=== PATIENT | female | born 1995 | race Caucasian/White ===

== ENCOUNTER 2018-08-25 03:20 | Outpatient (CLI) | payer OTHER, SELFPAY ==
[2018-08-25 03:56] VITALS: BMI 25.7
--- NOTE | 2018-08-25 06:05 | US_ITS ---
STUDY: SECOND AND THIRD TRIMESTER OBSTETRICAL ULTRASOUND - LIMITED REASON FOR EXAM: Female, 23 years old. Contractions with nausea. Check growth, position, and fluid levels. LMP: November 18, 2017. PRIOR ULTRASOUND: None. TECHNIQUE: Transabdominal TECHNICAL QUALITY: Adequate. FINDINGS: There is a single intrauterine fetus. The fetus is in a cephalic presentation. There is demonstrated cardiac activity with a heart rate of 128 bpm. There is a normal amniotic fluid volume. The largest amniotic fluid pocket measures 5.5 cm. The amniotic fluid index (ZUHAIR) is 15.9 cm. The placenta is posterior in location, but its position relative to the internal cervical os was not evaluated. There are Grade 3 placental changes. The cervix measures 2.9 cm in length and is closed. BIOMETRY: BPD: 9.5 cm: 38 weeks, 6 days HC: 34.24 cm: 39 weeks, 4 days AC: 35.74 cm: 39 weeks, 5 days FL: 7.72 cm: 39 weeks, 4 days Age by LMP: 39 weeks, 3 days. NAKITA by LMP: August 29, 2018. age by current US: 40 weeks, 0 days. NAKITA by current US: August 25, 2018. Estimated weight: 3797 grams, +/- 554 grams, 65 percentile. The umbilical cord is noted adjacent to the neck, but it is difficult to discern if it surrounds the neck. US/OB Limited With Biometrics IMPRESSION: 1. Single living intrauterine fetus in cephalic presentation estimated gestational age of 39 weeks, 3 days. Estimated date of delivery by today's exam as August 29, 2018. 2. Grade 3 posterior placenta. Placenta position relative to the internal cervical os was not evaluated. 3. Cervical length is 2.9 cm, and the cervix is closed. 4. Normal amniotic fluid volume with an index of 15.9 cm. 5. Estimated weight is 3797 g. 6. The umbilical cord is noted adjacent to the neck, but it is difficult to discern if it surrounds the neck. Electronically Signed: Juan Fink MD at 9:35 EST , Service support ,
--- NOTE | 2018-08-25 06:30 | NURSING ---
US visitor services technician called in to inform this nurse that she will be in to do US at approx 0730 and to have pt drink 32 oz prior to procedure.
[2018-08-25] MEDS: Acetaminophen 500 MG Tablet 650 MG PO (08:40)
--- NOTE | 2018-08-25 11:52 | OB.TRI.NOTE ---
- Problem List (1) False labor at or after 37 completed weeks of gestation, antepartum Status: Acute History of Present Illness Date of Service: 08/25/18 Was patient seen by the physician?: Yes Reason For Visit: R/O LABOR Date of Service: 08/25/18 Final NAKITA: 08/25/18 Final NAKITA Source: US <20 weeks Gestational age: 40 Weeks and 0 Days History of Present Illness: Patient is a 23 y/o @ 40 weeks by early 1st trimester ultrasound who presented to triage reporting regular ctx q 5 minutes apart and lasting 30-60 seconds. Patient reports +FM and denies any vaginal bleeding or discharge. Patient reports she was seen in OB office earlier in day where she had cervical exam and membrane sweep done. Allergies No Known Allergies Allergy (Verified 08/25/18 03:57) - Pertinent Past Medical History Pertinent Past Medical History: SEE [facility] - [facility] [place] Record Review of Systems Constitutional: Denies: Chills, Fever, Weight Change HEENT: Denies: Head Aches, Sinus Congestion, Sinus Drainage Cardiovascular: Denies: Chest Pain, Palpitations Respiratory: Denies: Cough, Shortness of breath at rest, Sputum production Gastrointestinal: Reports: - - Reports discomfort with ctx. Denies: Abdominal Pain, Nausea, Vomiting Genitourinary: Denies: Dysuria Gynecological: Denies: Vaginal bleeding, Vaginal discharge, Vaginal itching Musculoskeletal: Denies: Joint Pain, Joint Tenderness Skin: Denies: Rash, Wounds Neurological: Denies: Numbness, Tingling, Focal weakness Psychiatric: Denies: Anxiety, Depression, Homicidal Ideations, Suicidal Ideations Hematologic/ Lymphatic: Denies: Easy Bruising, Easy Bleeding Physical Exam Vitals: VSS and Afebrile Limited Growth 3rd trimester ultrasound showed EFW = 8#6oz, ZUHAIR = 16 General: Alert, Oriented x3, No apparent distress HEENT: Atraumatic, Normocephalic. Negative for: Thyromegaly, Lymphadenopathy Cardiovascular: Regular rate, Regular Rhythm Lungs: Normal air movement Abdomen: Non Tender, Gravid Neurological: Deep Tendon Reflexes 2+/4 and Symmetrical, Neuro grossly intact ANDROID FRAMEWORK DEVELOPER: Normal external genitalia. Negative for: Vulvar lesions Estimated gestational size: Appropriate for gestational size Presentation: Cephalic Cervix Dilation (cm): 1 - Per inside sales recruiter Station: -3 Effacement (%): 50 NST - FHR Rate Baby A Baseline: 120 Variability:: Moderate Accelerations:: 15 x 15 Decelerations:: None NST Reactive:: Yes, Appropriate for gestational age FHR Category:: Category I Uterine Activity:: Irregular q 5-10 minutes, most not palpable Impression/Plan 23 y/o @ 40 weeks, False Labor at Term, Category I FHT P: 1) Reassuring testing noted - discharge patient to home at this time 2) Labor precautions and FKC teaching done 3) F/u visit with [facility] provider on Monday in Office 4) Anticipate scheduled IOL @ 41 weeks if spontaneous labor does not occur 5) Dr. Sorensen and Pavithra back-up OB physicians notified of plan of care. Yolie ZARAGOZA
--- NOTE | 2018-08-25 11:57 | OB.TRI.HP_ITS ---
- Problem List (1) False labor at or after 37 completed weeks of gestation, antepartum Status: Acute History of Present Illness Date of Service: 08/25/18 Was patient seen by the physician?: Yes Reason For Visit: R/O LABOR Date of Service: 08/25/18 Final NAKITA: 08/25/18 Final NAKITA Source: US <20 weeks Gestational age: 40 Weeks and 0 Days History of Present Illness: Patient is a 23 y/o @ 40 weeks by early 1st trimester ultrasound who presented to triage reporting regular ctx q 5 minutes apart and lasting 30-60 seconds. Patient reports +FM and denies any vaginal bleeding or discharge. Patient reports she was seen in OB office earlier in day where she had cervical exam and membrane sweep done. Allergies No Known Allergies Allergy (Verified 08/25/18 03:57) - Pertinent Past Medical History Pertinent Past Medical History: SEE [facility] - [facility] [place] Record Review of Systems Constitutional: Denies: Chills, Fever, Weight Change HEENT: Denies: Head Aches, Sinus Congestion, Sinus Drainage Cardiovascular: Denies: Chest Pain, Palpitations Respiratory: Denies: Cough, Shortness of breath at rest, Sputum production Gastrointestinal: Reports: - - Reports discomfort with ctx. Denies: Abdominal Pain, Nausea, Vomiting Genitourinary: Denies: Dysuria Gynecological: Denies: Vaginal bleeding, Vaginal discharge, Vaginal itching Musculoskeletal: Denies: Joint Pain, Joint Tenderness Skin: Denies: Rash, Wounds Neurological: Denies: Numbness, Tingling, Focal weakness Psychiatric: Denies: Anxiety, Depression, Homicidal Ideations, Suicidal I deations Hematologic/ Lymphatic: Denies: Easy Bruising, Easy Bleeding Physical Exam Vitals: VSS and Afebrile Limited Growth 3rd trimester ultrasound showed EFW = 8#6oz, ZUHAIR = 16 General: Alert, Oriented x3, No apparent distress HEENT: Atraumatic, Normocephalic. Negative for: Thyromegaly, Lymphadenopathy Cardiovascular: Regular rate, Regular Rhythm Lungs: Normal air movement Abdomen: Non Tender, Gravid Neurological: Deep Tendon Reflexes 2+/4 and Symmetrical, Neuro grossly intact NETWORK PROFESSIONAL: Normal external genitalia. Negative for: Vulvar lesions Estimated gestational size: Appropriate for gestational size Presentation: Cephalic Cervix Dilation (cm): 1 - Per self defense instructor Station: -3 Effacement (%): 50 NST - FHR Rate Baby A Baseline: 120 Variability:: Moderate Accelerations:: 15 x 15 Decelerations:: None NST Reactive:: Yes, Appropriate for gestational age FHR Category:: Category I Uterine Activity:: Irregular q 5-10 minutes, most not palpable Impression/Plan 23 y/o @ 40 weeks, False Labor at Term, Category I FHT P: 1) Reassuring testing noted - discharge patient to home at this time 2) Labor precautions and FKC teaching done 3) F/u visit with [facility] provider on Monday in Office 4) Anticipate scheduled IOL @ 41 weeks if spontaneous labor does not occur 5) Dr. Sorensen and Pavithra back-up OB physicians notified of plan of care. Yolie ZARAGOZA
== END 2018-08-25 09:22 | disposition home or self-care (01) ==
LOC: WPOUT 03:53 → WP 03:54
PROVIDERS: Family Provider Pediatrics; PCP Pediatrics; Referring Provider Obstetrics & Gynecology; Visit Provider Obstetrics & Gynecology
DX: O47.1 False labor at or after 37 completed weeks of gestation (principal); Z3A.40 40 weeks gestation of pregnancy
CPT/HCPCS: 59025; 59050; 76816; 99218; G0378

== ENCOUNTER 2018-08-25 20:45 | Inpatient (IN) | payer OTHER, SELFPAY ==
[2018-08-25 03:56] VITALS: BMI 25.7
[2018-08-25 21:16] VITALS: BMI 25.9
[2018-08-25] MEDS: Lactated Ringers 1,000 ML 50 ML IV ×2 (21:35→22:49)
--- NOTE | 2018-08-25 21:42 | PCM.HP.OB ---
- Problem List (1) Active labor at term Status: Acute History Date of Admission: 08/25/18 Final NAKITA: 08/25/18 Final NAKITA Source: US <20 weeks Gestational age: 40 Weeks and 0 Days History of this : This is a 23 year-old, G [1], P [0], at 40 weeks gestational age by LMP and 1st trimester ultrasound presenting to triage for labor evaluation. Patient reports regular ctx since last night that progressively got stronger and longer throughout day. Patient started vomiting at home and reports that pain continued to intensify. Patient reports +FM, denies LOF or VB. Patient started care in [place] and then transferred care to [place] at 14 weeks. Patient's course has been uneventful. Allergies No Known Allergies Allergy (Verified 08/25/18 03:57) Home Medications: Home Medications Vit,Calc76/Iron/Folic [Pnv 29-1 Tablet] 1 tab PO DAILY 08/25/18 Smoking Status: Never smoker Alcohol: None Number of Fetus(es): 1 Heart Tracing: FHT baseline 130, moderate variability, + accels, no decels TOCO Analysis: Ctx q 1-5 minutes, palpate moderately strong History Past Pregnancies: Past Pregnancies Delivery Date Name GA/Weeks Outcome Route Weight Gender Labor Length Anesthesia Delivery Location Provider FOB Labs: GBS Neg; 1 hour GCT - 141 (elevated); 3 hour GCT - fasting = 73 (L), 1 hour = 167, 2 hour = 168 (H), 3 hour = 106; H/H 13.3 -->10.5/32.1; Urine Culture = Neg; Urine Tox = Neg; GC/CT = Neg/Neg, HIV = NR, HepBsAg = Neg, Rubella = Immune, Syphilis = Neg, A+ Abs = Neg Expected Delivery Method: Spontaneous Vaginal Describe any other labor & delivery plans:: Plans for Nitrous and an Epidural Number of Visits: 13 Review of Systems Constitutional: Denies: Chills, Fever, Weight Change HEENT: Denies: Head Aches, Sinus Congestion, Sinus Drainage Cardiovascular: Denies: Chest Pain, Palpitations Respiratory: Denies: Cough, Shortness of breath at rest, Sputum production Gastrointestinal: Denies: Abdominal Pain, Nausea, Vomiting Genitourinary: Denies: Dysuria Musculoskeletal: Denies: Joint Pain, Joint Tenderness Skin: Denies: Rash, Wounds Neurological: Denies: Numbness, Tingling, Focal weakness Psychiatric: Denies: Anxiety, Depression, Homicidal Ideations, Suicidal Ideations Hematologic/ Lymphatic: Denies: Easy Bruising, Easy Bleeding Physical Exam Vitals: See nursing note for vital signs - VSS, Afebrile General: Alert, Oriented x3 Cardiovascular: Regular rate, Regular Rhythm Lungs: Normal air movement Abdomen: Gravid Extremities:: No edema GRAIN WAFER MACHINE OPERATOR: Normal external genitalia Estimated gestational size: Appropriate for gestational size - EFW = 7.5# Presentation: Cephalic Cervix Dilation (cm): 6 - Per RN, IBOW Station: -2 Effacement (%): 90 Assessment/Plan All Active Problems False labor at or after 37 completed weeks of gestation, antepartum (Acute) Active labor at term (Acute) This is a 23 year-old, G [1], P [0], at 40 weeks gestational age, Active Labor, Category I FHT. P: 1) Admit patient - pain options reviewed. Patient elects Nitrous Oxide gas while receiving IV fluid bolus and waiting for platelet count to be processed 2) Expectant management at this time 3) Dr. Arshad OB physician back-up doctor notified of admission 4) Reassess cervix PRN or with change to maternal or status Yolie ZARAGOZA
--- NOTE | 2018-08-25 21:47 | HP.PCM_ITS ---
- Problem List (1) Active labor at term Status: Acute History Date of Admission: 08/25/18 Final NAKITA: 08/25/18 Final NAKITA Source: US <20 weeks Gestational age: 40 Weeks and 0 Days History of this : This is a 23 year-old, G [1], P [0], at 40 weeks gestational age by LMP and 1st trimester ultrasound presenting to triage for labor evaluation. Patient reports regular ctx since last night that progressively got stronger and longer throughout day. Patient started vomiting at home and reports that pain continued to intensify. Patient reports +FM, denies LOF or VB. Patient started care in [place] and then transferred care to [place] at 14 weeks. Patient's course has been uneventful. Allergies No Known Allergies Allergy (Verified 08/25/18 03:57) Home Medications: Home Medications Vit,Calc76/Iron/Folic [Pnv 29-1 Tablet] 1 tab PO DAILY 08/25/18 Smoking Status: Never smoker Alcohol: None Number of Fetus(es): 1 Heart Tracing: FHT baseline 130, moderate variability, + accels, no decels TOCO Analysis: Ctx q 1-5 minutes, palpate moderately strong History Past Pregnancies: Past Pregnancies Delivery Date Name GA/Weeks Outcome Route Weight Gender Labor Length Anesthesia Delivery Location Provider FOB Labs: GBS Neg; 1 hour GCT - 141 (elevated); 3 hour GCT - fasting = 73 (L), 1 hour = 1 67, 2 hour = 168 (H), 3 hour = 106; H/H 13.3 -->10.5/32.1; Urine Culture = Neg; Urine Tox = Neg; GC/CT = Neg/Neg, HIV = NR, HepBsAg = Neg, Rubella = Immune, Syphilis = Neg, A+ Abs = Neg Expected Infant Delivery Method: Spontaneous Vaginal Describe any other labor & delivery plans:: Plans for Nitrous and an Epidural Number of Visits: 13 Review of Systems Constitutional: Denies: Chills, Fever, Weight Change HEENT: Denies: Head Aches, Sinus Congestion, Sinus Drainage Cardiovascular: Denies: Chest Pain, Palpitations Respiratory: Denies: Cough, Shortness of breath at rest, Sputum production Gastrointestinal: Denies: Abdominal Pain, Nausea, Vomiting Genitourinary: Denies: Dysuria Musculoskeletal: Denies: Joint Pain, Joint Tenderness Skin: Denies: Rash, Wounds Neurological: Denies: Numbness, Tingling, Focal weakness Psychiatric: Denies: Anxiety, Depression, Homicidal Ideations, Suicidal Ideations Hematologic/ Lymphatic: Denies: Easy Bruising, Easy Bleeding Physical Exam Vitals: See nursing note for vital signs - VSS, Afebrile General: Alert, Oriented x3 Cardiovascular: Regular rate, Regular Rhythm Lungs: Normal air movement Abdomen: Gravid Extremities:: No edema IMPORT EXPORT MANAGER: Normal external genitalia Estimated gestational size: Appropriate for gestational size - EFW = 7.5# Presentation: Cephalic Cervix Dilation (cm): 6 - Per RN, IBOW Station: -2 Effacement (%): 90 Assessment/Plan All Active Problems False labor at or after 37 completed weeks of gestation, antepartum (Acute) Active labor at term (Acute) This is a 23 year-old, G [1], P [0], at 40 weeks gestational age, Active Labor, Category I FHT. P: 1) Admit patient - pain options reviewed. Patient elects Nitrous Oxide gas while receiving IV fluid bolus and waiting for platelet count to be processed 2) Expectant management at this time 3) Dr. Arshad OB physician back-up doctor notified of admission 4) Reassess cervix PRN or with change to maternal or status Yolie ZARAGOZA
[2018-08-25 21:58] LABS: Hematocrit 35.6 % (37-47); Hemoglobin 11.6 g/dl (12.0-15.0); Mean Corp Hgb Conc 32.6 g/gl (32-36); Mean Corpuscular Hgb 25.6 pg (27.0-32.0); Mean Corpuscular Volume 78.4 fL (81-99); Mean Platelet Vol. 10.6 fl (6.2-12.0); Platelet Count 238 K/mm3 (150-450); RBC Distribution Width CV 14.9 % (11.6-14.6); RBC Distribution Width SD 42.4 fl (35.1-43.9); Red Blood Count 4.54 M/mm3 (4.2-5.4); White Blood Count 21.3 K/mm3 (4.4-11.0)
[2018-08-25 21:59] LABS: Scan Indicated on CBC? Y/N NO
--- NOTE | 2018-08-26 00:44 | PCM.PN.BLA ---
Progress Note Patient resting now at this time. Patient received test dose from epidural and was comfortable but then felt increased numbness and tingling in hands and feet after epidural was dosed. Repeat vaginal exam by RN showed that patient was 6/90/-2, cervix with minimal change. Decision to reassess cervix and consider AROM at this time. O: VSS, Afebrile FHT baseline 150, moderate variability, no accels, early decels noted Ctx q 5-6 minutes, palpate moderate to strong SVE = 6/90/-2, AROM for scant blood-tinged fluid A: 23 y/o @ 40 weeks, Protracted Active Labor, Category I FHT P: 1) continue expectant management at this time 2) Consider IV pitocin for labor augmentation if cervix remains unchanged 3) Anticipate Yolie ZARAGOZA
--- NOTE | 2018-08-26 02:43 | PCM.PN.BLA ---
Progress Note Called to room to evaluate patient. Patient reports increase in rectal pressure and is not having relief now that epidural has been redosed. SVE recently done by nurse - patient is 8/100/-1 to 0 station. Patient reports pain in LLQ during ctx. Patient unsure what positions she would like to try at this time. O: VSS, Afebrile FHT baseline 145, moderate variability, + accels, no decels Ctx q 3 minutes, palpate moderate to strong SVE = 8/100/-1 to 0 station, provider deferred doing a rpt exam at this time A: 23 y/o @ 40+1 weeks, Transition Stage of Labor, Category I FHT P: 1) Continue present management 2) Encourage position changes 3) Anticipate Yoile ZARAGOZA
[2018-08-26] MEDS: Lactated Ringers 1,000 ML 50 ML IV (03:10)
--- NOTE | 2018-08-26 03:13 | PCM.PN.BLA ---
Progress Note Addendum: Rpt SVE done by this provider - patient is 8/-1 with more cervix toward anterior portion. Encourage position changes including H+K and left sidelying position at this time. Dr. Duran to bedside to reevaluate epidural and to redose. Will reevaluate patient PRN. Yolie Wade APRN-CNM
--- NOTE | 2018-08-26 05:34 | PCM.PN.BLA ---
Progress Note Paged by nursing staff, patient is now complete/+2 station by her exam. Patient's epidural is working well and she is starting to feel urge to bear down and push with urge. Will start trial of pushing at this time. Yolie ZARAGOZA
[2018-08-26] MEDS: Oxytocin 30 units/NS 500 ml 30 UNITS/500 ML IV.SOLN 334 UNITS IV (06:35)
--- NOTE | 2018-08-26 06:49 | PCM.OB.VAG ---
- Problem List (1) Active labor at term Status: Resolved Vaginal Delivery Maternal Presentation: Active Labor Patient presented to hospital in active labor and presented uneventfully to C/C/+2 station. Amniotic Membrane Rupture Type: Artificial Amniotic Fluid Description: Clear, Bloody Final NAKITA: 08/25/18 Gestational age: 40 Weeks and 1 Days doctor who attended delivery (if requested by OB): Noemy Luna - for meconium noted behind head Date of Procedure: 08/26/18 Pre-Operative Diagnosis: Spontaneous Labor Post-Operative Diagnosis: Viable of viable boy baby Surgery/ Procedure Performed: Spontaneous Vaginal Delivery Anesthesiologist: Janessa Gomez Type of Anesthesia: Epidural Description of Procedure: Patient pushed well and delivered viable boy baby over intact perineum at 0629. head delivered OA and then restituted to ARNOLD and then LOT. Small amount of meconium noted in fluid after head delivered. Plug Paster provider called to bedside on standby. Loose nuchal cord without compression noted, cord easily reduced around neck. Anterior shoulder then presented with next push and then posterior shoulder and body easily delivered. Infant initially with weak cry and decreased tone. Mouth and nose bulb suctioned and infant dried and stimulated. Umbilical cord clamped and cut and infant handed off to awaiting pediatric team for evaluation. By the time infant was brought to warmer, infant had good tone, color and a strong lusty cry. Apgars per informatics specialist. Wt. pending. Placenta delivered spontaneously via Garcia mechanism intact with 3VC. FF to massage, midline 2FB below umbilicus. 3rd stage IV pitocin infused per protocol for active management of the 3rd stage. Upon inspection of vaginal vault, no lacerations noted. Bilateral periurethral abrasions with good hemostasis. No repair indicated. Sponge count correct. Vaginal sweep negative. EBL = 150cc. initiated. [id number]-[id number] and bonding initiated. Yolie Wade VARNISH FILTERER-CNM Presentation: Vertex, ARNOLD Placental Delivery Description: Spontaneous Placenta Disposition: [facility] Cord Vessel Description: 3 Vessels Nuchal Cord Compression: Without compression Cord Entanglement: Around neck x 1, loose Estimated Blood Loss: 150 Infant A gender: Male Episiotomy Description: None Laceration: None Medications given after delivery: IV Pitocin Complications: None
--- NOTE | 2018-08-26 06:54 | OP.PCM_ITS ---
- Problem List (1) Active labor at term Status: Resolved Vaginal Delivery Maternal Presentation: Active Labor Patient presented to hospital in active labor and presented uneventfully to C/C/+2 station. Amniotic Membrane Rupture Type: Artificial Amniotic Fluid Description: Clear, Bloody Final NAKITA: 08/25/18 Gestational age: 40 Weeks and 1 Days doctor who attended delivery (if requested by OB): Noemy Luna - for meconium noted behind head Date of Procedure: 08/26/18 Pre-Operative Diagnosis: Spontaneous Labor Post-Operative Diagnosis: Viable of viable boy baby Surgery/ Procedure Performed: Spontaneous Vaginal Delivery Anesthesiologist: Janessa Gomez Type of Anesthesia: Epidural Description of Procedure: Patient pushed well and delivered viable boy baby over intact perineum at 0629. head delivered OA and then restituted to ARNOLD and then LOT. Small amount of meconium noted in fluid after head delivered. College President provider called to bedside on standby. Loose nuchal cord without compression noted, cord easily reduced around neck. Anterior shoulder then presented with next push and then posterior shoulder and body easily delivered. Infant initially with weak cry and decreased tone. Mouth and nose bulb suctioned and infant dried and stimulated. Umbilical cord clamped and cut and infant handed off to awaiting pediatric team for evaluation. By the time infant was brought to warmer, infant had good tone, color and a strong lusty cry. Apgars per sales and merchandising associate. Wt. pending. Placenta delivered spontaneously via Garcia mechanism intact with 3VC. FF to massage, midline 2FB below umbilicus. 3rd stage IV pitocin infused per protocol for active management of the 3rd stage. Upon inspection of vaginal vault, no lacerations noted. Bilateral periurethral abrasions with good hemostasis. No repair indicated. Sponge count correct. Vaginal sweep negative. EBL = 150cc. initiated. [id number] and bonding initiated. Yolie Wade ACID PURIFIER-CNM Presentation: Vertex, ARNOLD Placental Delivery Description: Spontaneous Placenta Disposition: [facility] Cord Vessel Description: 3 Vessels Nuchal Cord Compression: Without compression Cord Entanglement: Around neck x 1, loose Estimated Blood Loss: 150 Infant A gender: Male Episiotomy Description: None Laceration: None Medications given after delivery: IV Pitocin Complications: None
[2018-08-26] MEDS: Oxytocin 30 units/NS 500 ml 30 UNITS/500 ML IV.SOLN 167 UNITS IV (07:05)
--- NOTE | 2018-08-26 07:07 | DCINST_ITS ---
Discharge Diet: No Restrictions Discharge Activity: Return to Normal Activity, May not drive while taking narcotic pain medications., May Shower May resume sexual activity in: 4-6 weeks Additional Activity Instructions:: Nothing in the vagina for 4-6 weeks. You may return to work/school in 6 weeks. Call your doctor if your incision/area has: Continuous Slow Oozing, Sudden Increased Bleeding, Increased Pain/ Swelling, Increased Redness, Foul Smelling Discharge Call your doctor if you observe: Fever of 101 or Higher, Inability to urinate, Inability to have a bowel movement, Using more than one pad per hour Additional Instructions: If you experience any of the following, contact your healthcare provider. * Bleeding that soaks a pad every hour for 2 hours * Fever 100.4 or higher * Unrelieved incision or abdominal pain * Swelling, redness, discharge or bleeding from your incision or episiotomy site * Your incision begins to separate * Problems urinating (including inability to urinate or burning while urinating). * Visual changes * Severe headache * Flu-like symptoms * Pain or redness in one of both of your breasts * Pain, warmth, tenderness or swelling in your legs, especially the calf area * Frequent nausea and vomiting * Symptoms of depression or anxiety If you experience any of the following, call 911 or go to the nearest Emergency Room. * Chest pain * Problems breathing * Seizure activity * Partial or complete paralysis of a body part, slurred speech, weakness or drooping of the face, or a sudden inability to walk or hold your balance Allergies/Adverse Reactions: Allergies No Known Allergies Allergy (Verified 08/25/18 21:56) Medications to take at Discharge Vit,Calc76/Iron/Folic [Pnv 29-1 Tablet] 1 tab PO DAILY 08/25/18 Please Follow Up With: Yolie Wade CNM When: Call to make an appointment with your provider in 2 and 6 weeks. If you had elevated Blood Pressure or 4th degree laceration you will need to be seen in 1 week. Primary Care Physician: Teofilo Etienne MD [Primary Care Provider] - Test Results: Test results from this visit will be discussed in further detail at your follow- up appointment, if applicable. Proposed Discharge Date: 08/28/18
[2018-08-26] MEDS: Ibuprofen 600 MG Tablet PO ×2 (10:25→16:24)
[2018-08-26 12:30] VITALS: BP 94/50; PULSE 82; RESP 16; TEMP 37.1
[2018-08-26 16:00] VITALS: BP 102/64; PULSE 72; RESP 16; TEMP 36.9
[2018-08-26 20:35] VITALS: BP 104/62; PULSE 79; RESP 17; TEMP 36.6; O2SAT 97
[2018-08-26 23:58] VITALS: BP 107/61; PULSE 81; RESP 16; TEMP 36.7; O2SAT 97
[2018-08-27] MEDS: Ibuprofen 600 MG Tablet PO ×2 (00:08→08:02)
[2018-08-27 03:30] VITALS: BP 82/42; PULSE 75; RESP 15; TEMP 36.4; O2SAT 99
--- NOTE | 2018-08-27 03:30 | NURSING ---
Pt. blood pressure low at 82/42. Fundus firm at u-1, bleeding appropriate and small amount. Pt. denies any headache, shakiness, or lightheadedness. Pt. states she typically has low pressure, and she was laying down in bed about to sleep.
[2018-08-27 08:00] VITALS: BP 101/57; PULSE 70; RESP 16; TEMP 36.8
[2018-08-27] MEDS: Senna/Docusate Sodium 1 Tablet PO (08:02)
--- NOTE | 2018-08-27 08:09 | PCM.PN.OB ---
Subjective: pt seen at bedside, doing well. pt reports good pain control. lochia mild. breast feeding well. - Physical Exam General: Alert, Oriented x3 Abdomen: Soft, Non-Distended, - - fundus firm Extremities: No Calf Tenderness Vital Signs Temp Pulse Resp BP Pulse Ox 97.6 F L 75 15 82/42 L 99 08/27/18 03:30 08/27/18 03:30 08/27/18 03:30 08/27/18 03:30 08/27/18 03:30 Oxygen Delivery Method Room Air Weight: 66.587 kg Body Mass Index (BMI) 25.9 Intake and Output for Last 24 Hours 08/25/18 08/26/18 08/27/18 23:59 23:59 23:59 Output Total 590 / 590 Balance -590 / -590 Medical Necessity - Tobacco Use Smoking Status: Never smoker Assessment/Plan All Active Problems False labor at or after 37 completed weeks of gestation, antepartum (Acute) Active labor at term (Resolved) PPD#1, doing well routine care pain mgmt ambulation
[2018-08-27 13:30] VITALS: BP 100/64; PULSE 78; RESP 16; TEMP 36.7
[2018-08-27 19:26] VITALS: BP 111/69; PULSE 92; RESP 16; TEMP 37.7
[2018-08-28 01:49] VITALS: BP 109/53; PULSE 83; RESP 16; TEMP 37.7
[2018-08-28 07:50] VITALS: BP 108/64; PULSE 78; RESP 16; TEMP 37; O2SAT 95
--- NOTE | 2018-08-28 09:25 | PCM.PN.OB ---
Subjective: Patient standing up by bedside, reporting no issues or complaints at this time. Patient reports nipples are sore, notes that baby is latching okay though she is having a little bit of bruising at tips of nipples. Patient denies FOSTER, scotoma, dizziness. Denies any issues with urination or ambulation. She desires discharge to home today. Objective: Breasts filling, few fine cracks on nipple tips and slight ecchymoses. Abdomen NT x 4 quadrants, FF midline 3FB below umbilicus +2/4 reflexes in LE, negative calf tenderness to palpation Scant rubra lochia, intact perineum - Physical Exam General: Alert, Oriented x3, Cooperative HEENT: Atraumatic, Normocephalic Lungs: Normal air movement Cardiovascular: Regular rate, Regular Rhythm, No murmurs Abdomen: Soft, Non Tender, Passing Flatus Extremities: No edema, Capillary Refill Less than 3 Seconds Skin: No rashes, No breakdown Musculoskeletal: No Tenderness to Palpation of Joints or Extremities Neurological: Cranial nerves II-XII grossly intact Psych/Mental Status: Normal Affect, Appropriate Vital Signs Temp Pulse Resp BP Pulse Ox 98.6 F 78 16 108/64 95 08/28/18 07:50 08/28/18 07:50 08/28/18 07:50 08/28/18 07:50 08/28/18 07:50 Oxygen Delivery Method Room Air Weight: 146 lb 12.8 oz Body Mass Index (BMI) 25.9 Intake and Output for Last 24 Hours 08/26/18 08/27/18 08/28/18 23:59 23:59 23:59 Output Total 590 / 590 Balance -590 / -590 Medical Necessity - Tobacco Use Smoking Status: Never smoker Assessment/Plan All Active Problems False labor at or after 37 completed weeks of gestation, antepartum (Acute) Active labor at term (Resolved) 23 y/o now, s/p , PPD #2, Normal PP Course P: 1) Discharge patient to home pending discharge 2) Anticipatory discharge teaching 3) RTC at 2 and 6 weeks PP to [facility] Yolie ZARAGOZA
== END 2018-08-28 10:55 | disposition home or self-care (01) | DRG 807 ==
PROVIDERS: Admitting Provider Obstetrics & Gynecology; Family Provider Pediatrics; PCP Pediatrics; Referring Provider Obstetrics & Gynecology; Visit Provider Obstetrics & Gynecology
DX: O48.0 Post-term pregnancy (principal); Z37.0 Single live birth; Z3A.40 40 weeks gestation of pregnancy; O76 Abnormality in fetal heart rate and rhythm complicating labor and delivery; O77.0 Labor and delivery complicated by meconium in amniotic fluid; O69.81X0 Labor and delivery complicated by cord around neck, without compression, not applicable or unspecified
CPT/HCPCS: 59025; 59050; 85027; 86850; 86900; 99218; J7120; G0378

== ENCOUNTER 2024-11-22 16:56 | Emergency (ER) | payer SELFPAY ==
[2024-11-22 16:58] VITALS: BP 112/71; PULSE 106; RESP 18; TEMP 36.4; O2SAT 100; BMI 20.2
--- NOTE | 2024-11-22 17:03 | EKG12_ITS ---
Test Reason : chest pain Blood Pressure : */* mmHG Vent. Rate : 59 BPM Atrial Rate : 59 BPM P-R Int : 144 ms QRS Dur : 82 ms QT Int : 400 ms P-R-T Axes : 68 72 52 degrees QTcB Int : 396 ms Sinus bradycardia Otherwise normal ECG Confirmed by MEKA JUDGE, MAGDALENA ([id number]), digital editor FRANCY MURPHY ([id number]) on 11/25/2024 9:19:06 AM Referred By: Confirmed By: MAGDALENA ACKERMAN MD
[2024-11-22 17:35] LABS: Absolute Lymphocyte Count 2.43 X10^3/uL (0.83-4.51); Absolute Neutrophil Count 3.6 X10^3/uL (2.0-7.7); Basophil# 0.03 X10^3/uL; Basophil% 0.5 % (0-1); Eosinophil# 0.16 X10^3/uL; Eosinophils% 2.4 % (0-5); Hematocrit 36.6 % (37-47); Hemoglobin 12.4 g/dL (12.0-15.0); Lymphocyte # 2.43 X10^3/ul (0.83-4.51); Lymphocyte % 36.9 % (19-41); Mean Corp Hgb Conc 33.9 g/dL (32-36); Mean Corpuscular Volume 85.7 fL (81-99); Monocyte# 0.32 X10^3/uL; Monocyte% 4.9 % (0-10); NRBC Flagged by Analyzer 0 % (0-5); Neutrophil # 3.64 X10^3/uL (2.7-7.7); Neutrophil % 55.1 % (47-70); Platelet Count 237 K/mm3 (150-450); RBC Distribution Width CV 12.7 % (11.6-14.6); RBC Distribution Width SD 39.5 fl (35.1-43.9); Red Blood Count 4.27 M/mm3 (4.2-5.4); White Blood Count 6.6 K/mm3 (4.4-11.0)
--- NOTE | 2024-11-22 17:45 | RAD_ITS ---
PROCEDURE: CHEST 1 VIEW (PORTABLE) 11/22/2024 REASON FOR EXAM: CHEST PAIN TECHNIQUE: Frontal view of the chest. COMPARISON: None available FINDINGS: The lungs are clear. The cardiac and mediastinal contours appear within limits. The visualized osseous structures appear within limits. No pleural effusion or pneumothorax identified. RAD/Chest 1 View (Portable) IMPRESSION: No evidence of acute disease. Reading Location: [id number]
--- NOTE | 2024-11-22 17:53 | ED.VIS.CHEST ---
HPI History of Present Illness Chief Complaint: Chest Pain Detail of Chief Complaint: Chest pain Informant: patient Narrative Narrative: Patient presents to the emergency department with complaint of chest pain that started around noon today. Patient states that she typically sits at a computer frequently. She describes a tightness in the center of her chest that is intermittent. At times it is worse with certain movements or deep breath. She took to an acids but did not get any relief with that. Patient denies recent travel or surgery. No history of PE or DVT. Patient denies recent illness. She has had no cough or sore throat or bodyaches. She has had no fever. She states she has had some chills today. PFSH PFSH Home Medications ?Medication ?Instructions ?Recorded ?Last Taken ?Type vitamin 1 tab PO DAILY 08/25/18 08/25/18 History no.76-iron,carbonyl 29 mg iron-folic acid 1 mg tablet (PNV 29-1) Allergy/AdvReac Type Severity Reaction Status Date / Time No Known Allergies Allergy Verified 11/22/24 16:58 Social History Smoking Status: Never smoker ROS ROS ED Review of Systems ROS Unobtainable: other Constitutional Constitutional ED: Reports lethargy; Denies chills, fever(s), sweats or weight loss Eyes Eyes: Denies blurry vision, change in vision or diplopia ENT ENT ED: Denies rhinorrhea or sore throat Cardiovascular Cardiovascular: Reports chest pain; Denies orthopnea or racing heartbeat Respiratory/Chest Respiratory/Chest: Denies cough, dyspnea, dyspnea on exertion, orthopnea or sputum Gastrointestinal Gastrointestinal: Denies abdominal pain, diarrhea, nausea or vomiting Genitourinary Genitourinary ED: Denies dysuria, hematuria or urinary frequency Musculoskeletal Musculoskeletal: Denies arthralgias, back pain, myalgias or neck pain Integumentary Denies abscess, Abrasions or rash Neurologic Neurologic: Denies headache(s) or weakness Psychiatric Psychiatric: Denies anxiety, depression or suicidal thoughts Endocrine Endocrinology: Denies polydipsia, polyphagia or polyuria Hematologic/Lymphatic Hematologic/Lymphatic: Denies easy bleeding, easy bruising or lymphadenopathy Allergic/Immunologic Allergic/Immunologic ED: Denies mouth swelling, tongue swelling or urticaria EXAM Physical Exam Const Vital Signs: 11/22/24 16:58 11/22/24 17:58 11/22/24 18:00 Temperature 97.6 F L Temperature Source Temporal Pulse Rate 106 H 60 60 Respiratory Rate 18 16 16 Respiratory Effort Blood Pressure 112/71 99/67 99/67 Blood Pressure Mean 84 77 77 Pulse Ox 100 100 100 Oxygen Delivery Method Room Air Room Air Room Air 11/22/24 18:13 11/22/24 18:19 Temperature Temperature Source Pulse Rate Respiratory Rate Respiratory Effort Normal Blood Pressure Blood Pressure Mean Pulse Ox Oxygen Delivery Method Room Air Positive well nourished and well developed General Appearance ED: well developed and NAD HEENT Reports TM's clear and moist mucous membranes normocephalic and atraumatic; Negative for trauma or tenderness Tympanic Membrane ED: Yes TM's clear Eyes PERRL and EOMs intact bilaterally General Eye ED: Negative for pale conjunctiva or scleral icterus Neck no lymphadenopathy, supple and no JVD General: Negative for tenderness Chest Wall inspection of chest normal and palpation of chest normal Chest: Negative for tenderness Resp normal respiratory effort and clear to auscultation bilaterally Effort and Inspection: Negative for respiratory distress or pain with movement Auscultation: Negative for rhonchi, wheezes or diminished lung sounds Cardio regular rate, regular rhythm, S1 normal heart sound, S2 normal heart sound and no murmurs Peripheral Pulses: pulses 2+ throughout GI normal to inspection, nondistended, normoactive bowel sounds, soft to palpation, non-tender, non-distended and no masses Back/Spine no CVA tenderness and no thoracic nor lumbar tenderness Extremity normal to inspection General Extremety ED: Negative for edema General Extremity: Negative for edema Neuro oriented x3, CN's II-XII intact bilaterally, no sensory deficits noted and gait normal Sensorium / Orientation: awake, alert, oriented to person, oriented to place and oriented to time Motor Exam: strength 5/5 throughout and strength abnormal Psych mental status grossly normal Skin no rashes or lesions noted and no wounds MDM MDM MDM Narrative Medical decision making narrative: Patient presents with chest pain that started this afternoon. Describes some tightness as well as pain being worse with deep breath at times and movement. She clinically looks well. She has no cardiac risk factors for heart disease. EKG obtained arrival shows sinus rhythm with a ventricular rate of 59 bpm with no acute ST segment changes. CBC with differential, 6.6 with hemoglobin 12.4 and platelet count of 237. Chemistries unremarkable. D-dimer normal at 0.27. Troponin was normal less than 6. 1 view chest x-ray was normal. At this point discussed results with patient. Etiology of her pain unclear. Certainly do not think she is having a acute coronary syndrome or PE. Recommended follow-up with primary care physician within next 3 to 5 days. Advised to return if worsening pain, increasing shortness of breath, or condition should worsen anyway. Lab Data Attestation: I reviewed the patient's lab results. Labs: Laboratory Results - last 24 hr 11/22/24 11/22/24 17:15 18:09 WBC 6.6 RBC 4.27 Hgb 12.4 Hct 36.6 L MCV 85.7 MCH 29.0 MCHC 33.9 RDW Std Deviation 39.5 RDW Coeff of Naila 12.7 Plt Count 237 MPV 10.0 Immature Gran % (Auto) 0.200 Neut % (Auto) 55.1 Lymph % (Auto) 36.9 [place] % (Auto) 4.9 Eos % (Auto) 2.4 Baso % (Auto) 0.5 Absolute Neuts (auto) 3.6 Absolute Lymphs (auto) 2.43 Nucleated RBC % 0 D-Dimer Quant (PE/DVT) 0.27 Sodium 139 Potassium 3.7 Chloride 106 Carbon Dioxide 15.5 L Anion Gap 18 H BUN 5 Creatinine 0.70 Estim Creat Clear Calc 95.22 Est GFR (MDRD) Non-Af 118 BUN/Creatinine Ratio 7.2 L Glucose 80 Calcium 9.5 Troponin T High Sens < 6 Radiography Diagnostic Testing: Clinical Impression(s) from Imaging Studies Chest X-Ray 11/22/24 17:45 IMPRESSION: No evidence of acute disease. Reading Location: [facility] 1 view chest x-ray obtained interpreted by myself as no evidence of infiltrate or pneumothorax or acute disease process. Radiology in agreement EKG Initial EKG: Attestation: I personally reviewed and interpreted this EKG as follows: Comments: Sinus rhythm with ventricular rate of 59 bpm with no acute ST segment changes Discharge Plan Triage Chief Complaint: Chest Pain ED Provider: Leodan Ventura Dx/Rx/DC Orders Clinical Impression: Chest pain Instructions: ED Chest Pain, Uncertain Cause Prescriptions: No Action vit,[id number] [PNV 29-1] 1 EACH tablet 1 tab PO DAILY Primary Care Provider: Kamala Lucia [employer] C[employer]TER OPERATOR Referrals: Teofilo Etienne MD [Non-Staff] - 3-5 Days Print Language: Romanian Disposition Disposition: Home, Self Care
[2024-11-22 17:58] VITALS: BP 99/67; PULSE 60; RESP 16; O2SAT 100
[2024-11-22 17:58] LABS: Anion Gap 18 (5-15); BUN 5 mg/dL (4-19); BUN/Creat Ratio 7.2 RATIO (10-20); Calcium,Total 9.5 mg/dL (7.6-11.0); Carbon Dioxide 15.5 mmol/L (21.0-32.0); Chloride 106 mmol/L (98-108); EST Glomerular Filtration Rate 118 (>60); Estimated Creatinine Clearance 95.22 ml/min (50-250); Glucose 80 mg/dL (70-99); Potassium 3.7 mmol/L (3.3-5.1); Sodium Level 139 mmol/L (133-145); Troponin T High Sensitivity < 6 ng/L (<=14)
[2024-11-22 18:00] VITALS: BP 99/67; PULSE 60; RESP 16; O2SAT 100
[2024-11-22 18:34] LABS: D-Dimer Quantitative (DVT/PE) 0.27 FEU/ug/m (0.27-0.49)
[2024-11-22 19:18] VITALS: BP 108/63; PULSE 56; RESP 16; TEMP 36.6; O2SAT 99
== END 2024-11-22 19:19 | disposition home or self-care (01) ==
PROVIDERS: Emergency Provider Emergency Medicine; PCP Nurse Practitioner Family; Visit Provider Emergency Medicine
DX: R07.9 Chest pain, unspecified (principal)
CPT/HCPCS: 71045; 80048; 84484; 85025; 85379; 93005; 99283